=== PATIENT | female | born 1965 | race Caucasian/White ===

== ENCOUNTER → 2016-12-30 | Outpatient (CLI) | payer BC ==
[2013-01-22 20:42] VITALS: BP 145/83
[~2016-12-30] MED LIST: LISINOPRIL10 MG PO; METOPROLOL TART50 MG PO; NORCO 325 MG-51 TAB PO
== END ==
LOC: RAD 10:57
DX: N92.1 Excessive and frequent menstruation with irregular cycle (principal); Z00.00 Encounter for general adult medical examination without abnormal findings; N95.1 Menopausal and female climacteric states; M15.9 Polyosteoarthritis, unspecified; I10 Essential (primary) hypertension

== ENCOUNTER → 2016-12-31 | Outpatient (CLI) | payer BC ==
[2013-01-22 20:42] VITALS: BP 145/83
== END ==
LOC: LAB 08:08
DX: Z00.00 Encounter for general adult medical examination without abnormal findings (principal); N95.1 Menopausal and female climacteric states; N92.1 Excessive and frequent menstruation with irregular cycle; M15.9 Polyosteoarthritis, unspecified; I10 Essential (primary) hypertension

== ENCOUNTER → 2017-11-09 | Outpatient (CLI) | payer BC ==
[2013-01-22 20:42] VITALS: BP 145/83
[2017-11-10 04:45] LABS: T3 TOTAL 121 ng/dL (87-178)
== END ==
LOC: LAB 09:37
PROVIDERS: Nurse Practitioner Family
DX: R53.81 Other malaise (principal); R00.2 Palpitations; R68.89 Other general symptoms and signs; R19.4 Change in bowel habit

== ENCOUNTER 2018-06-17 18:36 | Emergency (ER) | payer BC ==
[~2018-06-17] VITALS: Ht 157.5 cm; Wt 68.2 kg
[2018-06-17] MEDS ORDERED: VENLAFAXINE HCL75 M3 PO (18:43)
[2018-06-17 19:05] LABS: HEMATOCRIT 43.2 % (37.0-47.0); HEMOGLOBIN 14.3 g/dL (12.5-16.0); MEAN CELL VOLUME 90 fl (78-100); MEAN CORPUSCULAR HEMOGLOBIN 30 pg (27-31); MEAN CORPUSCULAR HGB CONC 33 g/dL (33-37); PLATELET COUNT 227 K/mm3 (130-400); RED BLOOD COUNT 4.81 M/mm3 (4.10-5.30); RED CELL DISTRIBUTION WIDTH 12.8 % (11.5-14.5); WHITE BLOOD COUNT 6.2 K/mm3 (4.8-10.8)
[2018-06-17 19:24] LABS: ALBUMIN 4.4 g/dL (3.5-5.0); CALCIUM 9.8 mg/dL (8.4-10.2); TOTAL BILIRUBIN 0.4 mg/dL (0.2-1.3); TOTAL PROTEIN 7.3 g/dL (6.3-8.2)
[2018-06-17] MEDS ORDERED: PREDNISONE20 M1 PO (20:00)
[2018-06-17] MEDS ORDERED: TESSALON PERLE100 M1 PO (20:00)
[2018-06-17] MEDS ORDERED: PROAIR HFA0.09 MG/AC IH (20:00)
[2018-06-17 20:05] VITALS: BP 149/89
[2018-06-17 20:53] LABS: LYMPHOCYTE 37 % (20-51); MONOCYTE 12 % (3-10); NEUTROPHILS 50 % (42-75)
== END 2018-06-17 20:05 | disposition home or self-care (01) ==
LOC: ED 18:36
PROVIDERS: Nurse Practitioner
DX: J20.8 Acute bronchitis due to other specified organisms (principal); I10 Essential (primary) hypertension; F41.9 Anxiety disorder, unspecified; F32.9 Major depressive disorder, single episode, unspecified

== ENCOUNTER → 2019-04-20 | Outpatient (CLI) | payer BC ==
[~2019-04-20] MED LIST changes: +PREDNISONE20 M1 PO; +PROAIR HFA0.09 MG/AC IH; +TESSALON PERLE100 M1 PO; +VENLAFAXINE HCL75 M3 PO
[2019-04-20 09:07] LABS: EOS # 0.1 (0.04-0.40); EOS % 1.8 % (1.0-5.0); HEMATOCRIT 43.8 % (37.0-47.0); HEMOGLOBIN 14.2 g/dL (12.5-16.0); LYMPH# 2.5 (1.50-4.00); MEAN CELL VOLUME 90 fl (78-100); MEAN CORPUSCULAR HEMOGLOBIN 29 pg (27-31); MEAN CORPUSCULAR HGB CONC 32 g/dL (33-37); MONO # 0.5 (0.20-0.80); NEU # 3.4 (1.40-6.50); PLATELET COUNT 290 K/mm3 (130-400); RED BLOOD COUNT 4.86 M/mm3 (4.10-5.30); RED CELL DISTRIBUTION WIDTH 13.3 % (11.5-14.5); WHITE BLOOD COUNT 6.6 K/mm3 (4.8-10.8)
[2019-04-20 09:11] LABS: ALBUMIN 4.1 g/dL (3.5-5.0); POTASSIUM 4.1 mmol/L (3.5-5.1)
[2019-04-20 09:12] LABS: CALCIUM 9.6 mg/dL (8.3-10.5)
[2019-04-20 09:15] LABS: TOTAL BILIRUBIN 0.4 mg/dL (0.2-1.2)
== END ==
LOC: MAMMO 08:40
PROVIDERS: Physician Assistant
DX: Z00.00 Encounter for general adult medical examination without abnormal findings (principal); Z12.31 Encounter for screening mammogram for malignant neoplasm of breast; Z13.220 Encounter for screening for lipoid disorders; I10 Essential (primary) hypertension; M15.9 Polyosteoarthritis, unspecified

== ENCOUNTER → 2021-07-24 | Outpatient (CLI) | payer OTHER ==
[2021-07-24 10:10] LABS: BASO # 0.02 K/mm3 (0.02-0.10); EOS # 0.11 K/mm3 (0.04-0.40); EOS % 1.4 % (1.0-5.0); HEMATOCRIT 46.4 % (37.0-47.0); HEMOGLOBIN 15.2 g/dL (12.5-16.0); LYMPH# 2.24 K/mm3 (1.50-4.00); MEAN CELL VOLUME 89 fl (78-100); MEAN CORPUSCULAR HEMOGLOBIN 29 pg (27-31); MEAN CORPUSCULAR HGB CONC 33 g/dL (33-37); MEAN PLATELET VOLUME 8.4 fl (7.4-10.4); MONO # 0.62 K/mm3 (0.20-0.80); NEU # 4.98 K/mm3 (1.40-6.50); PLATELET COUNT 307 K/mm3 (130-400); RED BLOOD COUNT 5.19 M/mm3 (4.10-5.30); RED CELL DISTRIBUTION WIDTH 12.4 % (11.5-14.5)
[2021-07-24 11:10] LABS: ALBUMIN 4.4 g/dL (3.5-5.0); POTASSIUM 4.2 mmol/L (3.5-5.1)
[2021-07-24 11:11] LABS: CALCIUM 10.3 mg/dL (8.3-10.5)
[2021-07-24 11:13] LABS: TOTAL PROTEIN 7.4 g/dL (6.4-8.3)
[2021-07-24 11:14] LABS: TOTAL BILIRUBIN 0.5 mg/dL (0.2-1.2)
== END ==
LOC: LAB 09:55
PROVIDERS: Physician Assistant
DX: Z00.00 Encounter for general adult medical examination without abnormal findings (principal); Z01.419 Encounter for gynecological examination (general) (routine) without abnormal findings; Z12.31 Encounter for screening mammogram for malignant neoplasm of breast; Z13.29 Encounter for screening for other suspected endocrine disorder; I10 Essential (primary) hypertension; M15.9 Polyosteoarthritis, unspecified; F43.21 Adjustment disorder with depressed mood; F41.8 Other specified anxiety disorders; K90.9 Intestinal malabsorption, unspecified

== ENCOUNTER → 2021-07-30 | Outpatient (CLI) | payer OTHER | LOC: MAMMO 08:24 | DX: Z12.31 Encounter for screening mammogram for malignant neoplasm of breast (principal) ==

== ENCOUNTER → 2021-11-01 | Outpatient (CLI) | payer SELFPAY ==
[2021-11-01 09:21] LABS: ALBUMIN 4.3 g/dL (3.5-5.0)
[2021-11-01 09:22] LABS: CALCIUM 9.9 mg/dL (8.3-10.5)
[2021-11-01 09:25] LABS: TOTAL BILIRUBIN 0.6 mg/dL (0.2-1.2)
== END ==
LOC: LAB 08:46
PROVIDERS: Physician Assistant
DX: I10 Essential (primary) hypertension (principal); F41.8 Other specified anxiety disorders; F43.21 Adjustment disorder with depressed mood; G47.00 Insomnia, unspecified; E78.2 Mixed hyperlipidemia; R73.9 Hyperglycemia, unspecified; E55.9 Vitamin D deficiency, unspecified

== ENCOUNTER → 2024-02-10 | Outpatient (CLI) | payer OTHER ==
[2024-02-10 11:25] LABS: BASO # 0.02 K/mm3 (0.02-0.10); EOS # 0.05 K/mm3 (0.04-0.40); EOS % 0.7 % (1.0-5.0); HEMATOCRIT 48.1 % (37.0-47.0); HEMOGLOBIN 16.1 g/dL (12.5-16.0); MEAN CELL VOLUME 88 fl (78-100); MEAN CORPUSCULAR HEMOGLOBIN 30 pg (27-31); MEAN CORPUSCULAR HGB CONC 34 g/dL (33-37); MEAN PLATELET VOLUME 8.8 fl (7.4-10.4); MONO # 0.53 K/mm3 (0.20-0.80); NEU # 4.28 K/mm3 (1.40-6.50); PLATELET COUNT 273 K/mm3 (130-400); RED BLOOD COUNT 5.45 M/mm3 (4.10-5.30); RED CELL DISTRIBUTION WIDTH 12.6 % (11.5-14.5); WHITE BLOOD COUNT 7.4 K/mm3 (4.8-10.8)
[2024-02-10 11:33] LABS: ALBUMIN 4.5 g/dL (3.5-5.0)
[2024-02-10 11:34] LABS: CALCIUM 10.4 mg/dL (8.3-10.5)
[2024-02-10 11:36] LABS: TOTAL PROTEIN 7.2 g/dL (6.4-8.3)
[2024-02-10 11:38] LABS: TOTAL BILIRUBIN 0.5 mg/dL (0.2-1.2)
== END ==
LOC: LAB 11:10
PROVIDERS: Physician Assistant
DX: Z13.29 Encounter for screening for other suspected endocrine disorder (principal); E78.2 Mixed hyperlipidemia; K90.9 Intestinal malabsorption, unspecified; R73.9 Hyperglycemia, unspecified